=== PATIENT | female | born 1990 | race African-American/Black ===

== ENCOUNTER 2018-01-10 16:52 | Inpatient (IN) | payer MEDICAID, OTHER ==
[2018-01-10] MEDS ORDERED: PENICILLIN G-K 5 MILLION UNIT VIAL ONE ×3 (17:30→21:09)
[2018-01-10] MEDS ORDERED: MISOPROSTOL 0.2 MG TABLET ONE (17:30)
[2018-01-10] MEDS ORDERED: LIDOCAINE 1% INJ-PF (10 MG/ML) 30 ML SDV ONE (17:30)
[2018-01-10] MEDS ORDERED: OXYTOCIN/NORMAL SALINE 20 UNIT/1,000 ML RTUINJ ONE (17:31)
[2018-01-10] MEDS ORDERED: PENICILLIN G POTASSIUM 5,000,000 UNIT in DEXTROSE 5%-WATER 100 ML IV ONE (17:35)
[2018-01-10 18:00] LABS: APPEARANCE,URINE SLIGHTLY-CLOUDY; BILIRUBIN,URINE NEGATIVE (NEGATIVE); COLOR,URINE YELLOW; GLUCOSE, URINE NEGATIVE (NEGATIVE); KETONES,URINE NEGATIVE (NEGATIVE); LEUKOCYTE ESTERASE,URINE TRACE (NEGATIVE); NITRITE,URINE NEGATIVE (NEGATIVE); PROTEIN,URINE 30 mg/dL (NEGATIVE); URINE SPECIFIC GRAVITY 1.023
[2018-01-10 18:49] LABS: ABSOLUTE EOSINOPHILS # (AUTO) 0.2 10^3/uL (0.0-0.6); ABSOLUTE LYMPHOCYTES (AUTO) 1.6 10^3/uL (0.5-4.7); ABSOLUTE MONOCYTES (AUTO) 0.7 10^3/uL (0.1-1.4); ABSOLUTE NEUT (AUTO) 3.7 10^3/uL (1.7-8.2); BASOPHILS % (AUTO) 0.4 % (0-2); EOSINOPHILS % (AUTO) 3.3 % (0-6); HEMATOCRIT 30.4 % (36.0-47.0); HEMOGLOBIN 10.1 g/dL (12.0-15.5); LYMPHOCYTES % (AUTO) 25.9 % (13-45); MEAN CORPUSCULAR HEMOGLOBIN 27.4 pg (27.0-33.4); MEAN CORPUSCULAR VOLUME 83 fl (80-97); MONOCYTES % (AUTO) 11.1 % (3-13); PLATELET COUNT 243 10^3/uL (150-450); RED BLOOD COUNT 3.68 10^6/uL (3.72-5.28); RED CELL DISTRIBUTION WIDTH 14.1 % (11.5-14.0); SEGMENTED NEUTROPHILS % (AUTO) 59.3 % (42-78); TOTAL CELLS COUNTED % (AUTO) 100 %; WHITE BLOOD COUNT 6.2 10^3/uL (4.0-10.5)
[2018-01-10 18:53] LABS: URINE AMPHETAMINES SCREEN NEGATIVE; URINE BARBITURATES SCREEN NEGATIVE; URINE BENZODIAZEPINES SCREEN NEGATIVE; URINE COCAINE SCREEN NEGATIVE; URINE MARIJUANA (THC) SCREEN NEGATIVE; URINE METHADONE SCREEN NEGATIVE; URINE PHENCYCLIDINE SCREEN NEGATIVE
[2018-01-10 20:09] LABS: RUBELLA INTERPRETATION POSITIVE
[2018-01-10] MEDS: RINGERS SOLUTION,LACTATED 1,000 ML IV PRN ×2 (20:54→22:56)
[2018-01-10] MEDS: PENICILLIN G POTASSIUM 2,500,000 UNIT in DEXTROSE 5%-WATER 50 ML IV SCH (21:26)
[2018-01-10 22:21] LABS: CHLAM PCR NOT DETECTED (NOT DETECT); GON PCR NOT DETECTED (NOT DETECT)
--- NOTE | 2018-01-10 22:22 | Admission Physical ---
Datetime Report Generated by CPN: 01/10/2018 22:22 CURRENT ADMISSION Chief Complaint: Suspected Ruptured Membranes Chief Complaint Other: last PNC was at 20wk US, h/o PLTCS w/first delivery (pt request), successful 10 months ago w/second delivery Indication for Induction: PROM Admit Impression : Ruptured Membranes Admit Plan: Admit to Unit; Initiate Protocol ALLERGIES Medication Allergies: No Medication Allergies: No Known Allergies (01/10/2018) Latex: No Latex Allergies OBSTETRICAL HISTORY EDC: 01/24/2018 00:00 : 3 Para: 2 Livin Cesareans: 1 VBACs: 1 Gestational Diabetes: No Rh Sensitization: No Incompetent Cervix: No NIA: No Infertility: No ART Treatment: No Uterine Anomaly: No IUGR: No Hx Previous C/S: Yes Macrosomia: No Hx Loss/Stillborn: No PIH: No Hx : No Placenta Previa/Abruption: No Depression/PP Depression: No PTL/PROM: No Post Hemorrhage: No Current Procedures: None Obstetrical History Comments: G1 C section 2010 girl @ 39 weeks G2 2017, girl @ 37 weeks G3 current SEE RECORDS Alcohol: No Marijuana : No Cocaine: No Other Illicit Drugs: No Cigarettes: Former Smoker. 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 Heart Disease: No Hosp/Surgery: Yes Autoimmune Disorder: No Anesthetic Complications: No Kidney Disease: No Abnormal Pap Smear: No Neuro/Epilepsy: No Psychiatric Disorders: No Other Medical Diseases: No Hepatitis/Liver Disease: No Significant Family History: No Varicosities/Phlebitis: No Trauma/Violence : No Thyroid Dysfunction: No Medical History Comments: x's 1; x's 1 INFECTIOUS HISTORY Gonorrhea: No Genital Herpes: No Chlamydia: No Tuberculosis: No Syphilis: No Hepatitis: No HIV/AIDS Exposure: No Rash or Viral Illness: No HPV: No PHYSICAL EXAM General: Normal HEENT: Normal Neurologic: Normal Thyroid: Normal Heart: Normal Lungs: Normal Breast: Normal Back: Normal Abdomen: Normal Genitourinary Exam: Normal Extremities: Normal DTRs: Normal Pelvic Type: Adequate Vital Signs: Reviewed; Within Normal Limits FETUS A EGA: 38.0 Monitoring: External US Estimated Weight (gm): 3600 Presentation: Vertex PLANS FOR LABOR AND DELIVERY Labor and Delivery: None Pain Management: Natural; Epidural Feeding Preference: Both Benefit of Breast Feed Discussed: Yes Circumcision: No INFORMED CONSENT Informed Consent Obtained: Vaginal Delivery; Induction of Labor; Vaginal After ; Risks, Benefits and Alternatives Discussed Signature: with User ID: [email or web address]
[2018-01-11] MEDS ORDERED: OXYTOCIN 10 UNIT/ML VIAL ONE (00:46)
[2018-01-11] MEDS ORDERED: OXYTOCIN/NORMAL SALINE 0 UNIT/0 ML RTUINJ ONE (00:46)
[2018-01-11] MEDS ORDERED: PENICILLIN G-K 5 MILLION UNIT VIAL ONE ×3 (00:46→09:56)
[2018-01-11] MEDS: PENICILLIN G POTASSIUM 2,500,000 UNIT in DEXTROSE 5%-WATER 50 ML IV SCH ×5 (01:35→20:27)
[2018-01-11] MEDS: RINGERS SOLUTION,LACTATED 1,000 ML IV PRN (05:50)
[2018-01-11] MEDS ORDERED: NALBUPHINE HCL INJ 10 MG/1 ML AMPULE INJ ONE (09:52)
[2018-01-11] MEDS ORDERED: PROMETHAZINE HCL INJ 25 MG/1 ML VIAL IV ONE (09:53)
[2018-01-11] MEDS ORDERED: PROMETHAZINE HCL INJ 25 MG/1 ML VIAL ONE (09:56)
[2018-01-11] MEDS ORDERED: NALBUPHINE HCL INJ 10 MG/1 ML AMPULE ONE (09:56)
[2018-01-11] MEDS ORDERED: EPHEDRINE SULFATE INJ 50 MG/1 ML AMPULE ONE (14:15)
[2018-01-11] MEDS ORDERED: PHENYLEPHRINE HCL INJ/PF 10 MG/1 ML SDV ONE (14:15)
[2018-01-11] MEDS ORDERED: FENTANYL CITRATE INJ/PF 100 MCG/2 ML AMPUL ONE (14:15)
[2018-01-11] MEDS ORDERED: BUPIVACAINE HCL 0.5 % INJ/PF 30 ML SDV ONE (14:16)
[2018-01-11] MEDS ORDERED: FENTANYL/BUPIVACAINE/NS/PF 0 MCG/0 ML RTUINJ EPI ONE (14:16)
[2018-01-11] MEDS ORDERED: NA PHOS,M-B/NA PHOS,DI-BA (ADULT) 133 ML ENEMA PR PRN (15:29)
[2018-01-11] MEDS ORDERED: PSEUDOEPHEDRINE HCL 30 MG TABLET PO PRN (15:29)
[2018-01-11] MEDS ORDERED: ZOLPIDEM TARTRATE 5 MG TABLET PO PRN (15:29)
[2018-01-11] MEDS ORDERED: PROMETHAZINE HCL 25 MG SUPP.RECT PR PRN (15:29)
[2018-01-11] MEDS ORDERED: ACETAMINOPHEN WITH CODEINE #3 TABLET PO PRN (15:29)
[2018-01-11] MEDS ORDERED: PROMETHAZINE HCL INJ 25 MG/1 ML VIAL IV PRN (15:29)
[2018-01-11] MEDS ORDERED: BENZOCAINE/MENTHOL AEROSOL SPRAY 56 ML TOP PRN (15:29)
[2018-01-11] MEDS ORDERED: MEASLES,MUMPS&RUBELLA VACC/PF 0.5 ML VIAL SUBCUT PRN (15:29)
[2018-01-11] MEDS ORDERED: DIPHENHYDRAMINE HCL 25 MG CAPSULE PO PRN (15:29)
[2018-01-11] MEDS ORDERED: DIBUCAINE 1% OINTMENT 28 GM TP PRN (15:29)
[2018-01-11] MEDS ORDERED: DIPH/PERTUSS(ACELL)/TETANUS VAC/PF 0.5 ML SYR (>=10YO) IM PRN (15:29)
[2018-01-11] MEDS ORDERED: PROMETHAZINE HCL 25 MG TABLET PO PRN (15:29)
[2018-01-11] MEDS ORDERED: GLYCERIN/WITCH HAZEL LEAF 1 EACH MED..PAD TP PRN (15:29)
[2018-01-11] MEDS ORDERED: OXYTOCIN/NORMAL SALINE 20 UNIT/1,000 ML RTUINJ IV PRN (15:29)
[2018-01-11] MEDS ORDERED: MAGNESIUM HYDROXIDE SUSP 30 ML UDCUP PO PRN (15:29)
[2018-01-11] MEDS ORDERED: ACETAMINOPHEN 650 MG SUPP.RECT PR PRN (15:29)
--- NOTE | 2018-01-11 16:05 | Delivery Summary ---
Del Sum A-C Datetime Report Generated by CPN: 01/11/2018 16:05 DELIVERY PERSONNEL DELIVERY PERSONNEL: [id number] Delivery Doctor:: Mera Goldman MD Labor and Delivery Nurse:: Tiffany Bradshaw RNrn support services Nurse:: Kath Lemus, RNC MATERNAL INFORMATION Delivery Anesthesia: None Medications After Delivery: Pitocin Drip 20 Units/1000ml NSS Estimated Blood Loss (ml): 200 Maternal Complications: None; Other Complication Details: No care LABOR SUMMARY EDC: 01/24/2018 00:00 No. Babies in Womb: 1 Attempted: Yes Labor Anesthesia: None LABOR INFORMATION Reason for Induction: Not Applicable Onset of Labor: 01/11/2018 13:51 Complete Dilatation: 01/11/2018 14:30 Oxytocin: Augmentation Group B Beta Strep: Unknown Antibiotics # of Doses: 5 Antibiotics Time of Last Dose: 1052 Name of Antibiotic Given: Penicillin Steroids Given: None Reason Steroids Not Administered: Not Applicable MEMBRANES Membranes Rupture Method: Artificial Rupture of Membranes: 01/10/2018 16:30 Length of Rupture (hr): 22.35 Amniotic Fluid Color: Clear Amniotic Fluid Amount: Small Amniotic Fluid Odor: None STAGES OF LABOR Stage 1 hr: 0 Stage 1 min: 39 Stage 2 hr: 0 Stage 2 min: 21 Stage 3 hr: 0 Stage 3 min: 6 Total Time in Labor hr: 1 Total Time in Labor min: 6 VAGINAL DELIVERY Episiotomy: None Laceration #1: None Laceration Extension #1: N/A Laceration Repair: Not Applicable Sponge Count Correct: Yes Sharps Count Correct: Yes CSECTION DELIVERY Primary Indication: N/A Secondary Indication: N/A CSection Incidence: N/A Labor: N/A Elective: N/A CSection Incision: N/A BABY A INFORMATION Infant Delivery Date/Time: 01/11/2018 14:51 Method of Delivery: Vaginal Born in Route : No : Successful Forceps: N/A Vacuum Extraction: N/A Shoulder Dystocia : No PRESENTATION/POSITION BABY A Presentation: Cephalic Cephalic Presentation: Vertex Breech Presentation: N/A PLACENTA INFORMATION BABY A Placenta Delivery Time : 01/11/2018 14:57 Placenta Method of Delivery: Spontaneous Placenta Status: Delivered SCORES BABY A Heart Rate 1 min: >100 bpm Resp Effort 1 min: Good Cry Reflex Irritability 1 min: Cough or Sneeze or Pulls Away Muscle Tone 1 min: Active Motion Color 1 min: Body [place], Extremities Blue SCORE 1 MIN: 9 Heart Rate 5 min: >100 bpm Resp Effort 5 min: Good Cry Reflex Irritability 5 min: Cough or Sneeze or Pulls Away Muscle Tone 5 min: Active Motion Color 5 min: Completely [place] SCORE 5 MIN: 10 INFORMATION BABY A Gestational Age at Delivery: 38.1 Gestational Status: Early Term- 37- 38.6 Weeks Infant Outcome : Liveborn Condition : Stable Sex: Male IDENTIFICATION BABY A ID Band Number: [id number] Mother's Name Verified: Yes Infant RN Verifying : Fredy RN WEIGHT/LENGTH BABY A Infant Birthweight (gm): 3770 Weight (lb): 8 Infant Weight (oz): 5 Length (in): 20.50 Length (cm): 52.07 CORD INFORMATION BABY A No. Cord Vessels: 3 Nuchal Cord : N/A Cord Blood Taken: Yes-For Storage (Mom's Blood type +) Suction: Mouth; Nose BABY B INFORMATION : N/A SIGNATURES Signature: with User ID: [email or web address]
[2018-01-11] MEDS: FERROUS SULFATE 325 MG TABLET PO SCH (17:44)
[2018-01-11] MEDS: DOCUSATE SODIUM 100 MG CAPSULE PO SCH (17:48)
[2018-01-11] MEDS ORDERED: IBUPROFEN 800 MG TABLET ONE (17:51)
[2018-01-11] MEDS: FAMOTIDINE 20 MG TABLET PO SCH (22:10)
[2018-01-11] MEDS: ACETAMINOPHEN WITH CODEINE #3 TABLET PO PRN (23:27)
[2018-01-12] MEDS ORDERED: MISOPROSTOL 0.2 MG TABLET ONE (00:15)
[2018-01-12] MEDS ORDERED: METHYLERGONOVINE MALEATE INJ/PF 0.2 MG/1 ML AMPULE ONE (00:47)
[2018-01-12] MEDS ORDERED: METHYLERGONOVINE MALEATE INJ/PF 0.2 MG/1 ML AMPULE IM ONE (01:00)
[2018-01-12] MEDS: IBUPROFEN 800 MG TABLET PO SCH ×4 (03:04→22:18)
[2018-01-12] MEDS: PENICILLIN G POTASSIUM 2,500,000 UNIT in DEXTROSE 5%-WATER 50 ML IV SCH ×2 (03:05→03:06)
[2018-01-12] MEDS ORDERED: MISOPROSTOL 0.2 MG TABLET PR ONE (03:15)
[2018-01-12] MEDS: RINGERS SOLUTION,LACTATED 1,000 ML IV PRN (05:59)
[2018-01-12 07:22] LABS: HEMOGLOBIN 8.4 g/dL (12.0-15.5); MEAN CORPUSCULAR HEMOGLOBIN 27.3 pg (27.0-33.4); MEAN CORPUSCULAR HGB CONC 33.5 g/dL (32.0-36.0); MEAN CORPUSCULAR VOLUME 82 fl (80-97); PLATELET COUNT 209 10^3/uL (150-450); RED BLOOD COUNT 3.06 10^6/uL (3.72-5.28); RED CELL DISTRIBUTION WIDTH 13.9 % (11.5-14.0)
[2018-01-12] MEDS ORDERED: PROMETHAZINE HCL INJ 25 MG/1 ML VIAL IV PRN (09:30)
[2018-01-12] MEDS ORDERED: MEASLES,MUMPS&RUBELLA VACC/PF 0.5 ML VIAL SUBCUT PRN (09:30)
[2018-01-12] MEDS ORDERED: DIPH/PERTUSS(ACELL)/TETANUS VAC/PF 0.5 ML SYR (>=10YO) IM PRN (09:30)
--- NOTE | 2018-01-12 09:51 | PDOC PROGRESS REPORT ---
Subjective-OB Progress Note for:: 01/12/18 Subjective: PP Day #1, doing well no complaints. A+ / Rubella Immune, pt is breast and bottlefeeding Physical Exam (OB) Vital Signs: Temp Pulse Resp BP Pulse Ox 98.6 F 89 18 137/65 H 99 01/12/18 08:00 01/12/18 08:00 01/12/18 08:00 01/12/18 08:00 01/12/18 08:00 Intake & Output 01/11/18 01/12/18 01/13/18 06:59 06:59 06:59 Intake Total 1217 1050 Output Total 880 Balance 1217 170 Weight 86.5 kg - General General Appearance: Appears well, Alert In distress: None - PIH/Pre-Eclampsia DTR's: 1 + Clonus: Negative Headache: Absent Epigastric Pain: No Visual Changes: No - Episiotomy/Laceration Site Condition: N/A - Lochia Lochia Amount: Small 10-25 ml Lochia Color: Rubra/Red - Abdomen Description: Tender, Firm Hernia Present: No Fundal Description: Firm Fundal Height: u/u - u/2 - Respiratory Respiratory Status: No respiratory distress - Abdominal Inspection: Normal Distension: No distension - Genitourinary Genitourinary Note: voiding - Extremities Upper extremity: Normal inspection Lower extremities: Normal inspection - Neurological Cognition: Normal Orientation: AAOx4 - Psychological Associated symptoms: Normal affect, Normal mood - Skin Skin Temperature: Warm Skin Moisture: Dry Objective-Diagnostic Laboratory: 01/12/18 06:51 01/12/18 06:51 WBC 13.0 H D RBC 3.06 L Hgb 8.4 L Hct 25.0 L MCV 82 MCH 27.3 MCHC 33.5 RDW 13.9 Plt Count 209 Assessment and Plan(PN) - Assessment and Plan (1) normal course Is this a current diagnosis for this admission?: Yes (2) Anemia, Is this a current diagnosis for this admission?: Yes (3) (normal spontaneous vaginal delivery) Is this a current diagnosis for this admission?: Yes - Time Spent with Patient Time with patient: Less than 15 minutes - Disposition Anticipated Discharge: Home Within: within 48 hours
[2018-01-12] MEDS ORDERED: (PENDING PHARMACY ID) (Pnv No.95/Ferrous Fum/Folic Ac [Prenatal Vitamins Tablet] 1 EACH) PO SCH (10:00)
[2018-01-12] MEDS: ACETAMINOPHEN WITH CODEINE #3 TABLET PO PRN (10:12)
[2018-01-12] MEDS: DOCUSATE SODIUM 100 MG CAPSULE PO SCH ×2 (10:13→17:43)
[2018-01-12] MEDS: PRENATAL VITAMIN W DHA CAPSULE PO SCH (10:13)
[2018-01-12] MEDS: FERROUS SULFATE 325 MG TABLET PO SCH ×2 (10:14→17:43)
[2018-01-12] MEDS: SENNOSIDES/DOCUSATE 8.6-50 MG 1 EACH TABLET PO SCH (10:14)
[2018-01-12] MEDS: FAMOTIDINE 20 MG TABLET PO SCH ×2 (10:14→22:18)
[2018-01-12 13:37] LABS: HEPATITIS C VIRUS AB <0.1 s/co ratio (0.0-0.9)
[2018-01-13] MEDS: IBUPROFEN 800 MG TABLET PO SCH (05:59)
[2018-01-13 07:14] LABS: HEPATITS B SURFACE ANTIGEN Negative (Negative)
[2018-01-13] MEDS: DOCUSATE SODIUM 100 MG CAPSULE PO SCH (09:51)
[2018-01-13] MEDS: SENNOSIDES/DOCUSATE 8.6-50 MG 1 EACH TABLET PO SCH (09:51)
[2018-01-13] MEDS: FAMOTIDINE 20 MG TABLET PO SCH (09:51)
[2018-01-13] MEDS: FERROUS SULFATE 325 MG TABLET PO SCH (09:51)
[2018-01-13] MEDS: PRENATAL VITAMIN W DHA CAPSULE PO SCH (09:51)
--- NOTE | 2018-01-13 10:43 | PDOC DISCHARGE SUMMARY ---
Final Diagnosis Discharge Date: 01/13/18 - Final Diagnosis (1) (normal spontaneous vaginal delivery) Is this a current diagnosis for this admission?: Yes Discharge Data - Discharge Medication Prescriptions: Ibuprofen [Motrin 800 mg Tablet] 800 mg PO Q8HP PRN #30 tablet PRN Reason: Home Medications: Pnv No.95/Ferrous Fum/Folic AC [ Vitamins Tablet] 1 each PO DAILY Ferrous Sulfate [Feosol 325 mg Tablet] 325 mg PO BID tablet 01/13/18 Ibuprofen [Motrin 800 mg Tablet] 800 mg PO Q8HP PRN #30 tablet 01/13/18 Procedures: NST Intrapartum Procedure(s): Spontaneous Vaginal Delivery - Diagnosis Test Laboratory: Temp Pulse Resp BP Pulse Ox 97.9 F 73 16 130/55 H 99 01/13/18 08:17 01/13/18 08:17 01/13/18 08:17 01/13/18 08:17 01/13/18 08:17 01/10/18 01/10/18 01/12/18 17:00 18:35 06:51 RBC 3.68 L 3.06 L Hgb 10.1 L 8.4 L Hct 30.4 L 25.0 L Urine Opiates Screen NEGATIVE - Discharge information/Instructions Discharge Activity: Balance Activity w/Rest, Pelvic Rest Discharge Diet: Regular Disposition: HOME, SELF-CARE Follow up with: [facility] in: 4, Weeks
[2018-01-13 10:45] VITALS: BP 127/80
== END 2018-01-13 12:07 | disposition home or self-care (01) | DRG 807 ==
LOC: LC 16:52 → LR 17:38 → 2S 01-11 17:16
PROVIDERS: ADMIT Obstetrics & Gynecology; ATTEND Obstetrics & Gynecology
PROC: 10E0XZZ Delivery of Products of Conception, External Approach (ICD-10-PCS; principal; 2018-01-11)
DX: O34.211 Maternal care for low transverse scar from previous cesarean delivery (principal); Z37.0 Single live birth; O42.02 Full-term premature rupture of membranes, onset of labor within 24 hours of rupture; O99.02 Anemia complicating childbirth; D64.9 Anemia, unspecified; N85.8 Other specified noninflammatory disorders of uterus; Z3A.38 38 weeks gestation of pregnancy
CPT/HCPCS: 36415; 80307; 81005; 84112; 85025; 85027; 86592; 86701; 86762; 86803; 86804; 86850; 86900; 86901; 87340; 87491; 87591; 90471; 90686; G0008; J2210; J2300; J2370; J2540; J2550; J2590; J3010; J3490; J7120

== ENCOUNTER 2019-01-03 14:41 | Outpatient (CLI) | payer SELFPAY ==
[2019-01-03 16:07] LABS: BACTERIA (WET MOUNT) 3+ BACTERIA SEEN; EPITHELIALS (WET MOUNT) 3+ EPITHELIALS SEEN; RBCS (WET MOUNT) FEW RBCS SEEN; T.VAGINALIS (WET MOUNT) NO TRICHOMONAS SEEN; WBCS (WET MOUNT) 3+ WBCS SEEN; YEAST (WET MOUNT) NO YEAST SEEN
[2019-01-03 16:11] LABS: ABSOLUTE EOSINOPHILS # (AUTO) 0.2 10^3/uL (0.0-0.6); ABSOLUTE LYMPHOCYTES (AUTO) 1.4 10^3/uL (0.5-4.7); ABSOLUTE MONOCYTES (AUTO) 0.5 10^3/uL (0.1-1.4); ABSOLUTE NEUT (AUTO) 3.6 10^3/uL (1.7-8.2); BASOPHILS % (AUTO) 0.5 % (0-2); EOSINOPHILS % (AUTO) 3.1 % (0-6); HEMATOCRIT 31.9 % (36.0-47.0); HEMOGLOBIN 10.2 g/dL (12.0-15.5); LYMPHOCYTES % (AUTO) 24.8 % (13-45); MEAN CORPUSCULAR HEMOGLOBIN 26.9 pg (27.0-33.4); MEAN CORPUSCULAR VOLUME 84 fl (80-97); MONOCYTES % (AUTO) 9.1 % (3-13); PLATELET COUNT 264 10^3/uL (150-450); RED CELL DISTRIBUTION WIDTH 14.1 % (11.5-14.0); SEGMENTED NEUTROPHILS % (AUTO) 62.5 % (42-78); TOTAL CELLS COUNTED % (AUTO) 100 %; WHITE BLOOD COUNT 5.8 10^3/uL (4.0-10.5)
--- NOTE | 2019-01-03 16:17 | RADIOLOGY REPORT (SQ) ---
EXAM DESCRIPTION: U/S OB 14+ TRNABD 1GES W/O DOP COMPLETED DATE/TIME: 01/03/2019 4:03 pm REASON FOR STUDY: no care COMPARISON: None. TECHNIQUE: Static and Dynamic grayscale imaging performed of gravid uterus using transabdominal appr oach. Additional selected color Doppler and spectral images recorded. All stored on PACS. LIMITATIONS: None. FINDINGS: FETUSES SEEN:1 EGA: 29 weeks 5 days Calculated using BPD,FL,HC,AC documented on images. No care ALEXA: 03/16/2019 EFW: 1329 g grams PERCENTILE: Not calculated DAVIDE: Largest pocket 3.9 cm PLACENTA: Posterior GRADE: I PRESENTATION: Cephalic. ANATOMY: HEART RATE: 149 beats per minute. FOUR CHAMBER HEART: Visualized. THREE VESSEL CORD: Yes. CORD INSERTION: Visualized. KIDNEYS AND BLADDER: Visualized. Appear normal. STOMACH: Visualized. Appears normal. SPINE: Normal as visualized. BRAIN AND LATERAL VENTRICLES: Visualized. Appear normal. OTHER: No other significant finding. MATERNAL ADNEXA: Maternal ovaries not visualized. CERVICAL LENGTH: 3.2 cm Closed. OTHER: No other significant finding. IMPRESSION: LIVING INTRAUTERINE . ESTIMATED GESTATIONAL AGE 29 weeks 5 days, estimated due date 03/16/2019 NO VISUALIZED ANOMALIES. Trimester of : Third trimester - 28 weeks to delivery. TECHNICAL DOCUMENTATION: JOB ID: [id number] [employer]- All Rights Reserved Reading location - IP/workstation name: [email or web address]
[2019-01-03 16:59] LABS: APPEARANCE,URINE SLIGHTLY-CLOUDY; BILIRUBIN,URINE NEGATIVE (NEGATIVE); COLOR,URINE YELLOW; GLUCOSE, URINE NEGATIVE (NEGATIVE); KETONES,URINE NEGATIVE (NEGATIVE); LEUKOCYTE ESTERASE,URINE MODERATE (NEGATIVE); NITRITE,URINE NEGATIVE (NEGATIVE); PROTEIN,URINE NEGATIVE (NEGATIVE); URINE SPECIFIC GRAVITY 1.026; UROBILINOGEN,URINE NEGATIVE mg/dL (<2.0)
[2019-01-03] MEDS ORDERED: DIPH/PERTUSS(ACELL)/TETANUS VAC/PF 0.5 ML SYR (>=10YO) IM ONE (17:20)
[2019-01-03 17:27] LABS: URINE AMPHETAMINES SCREEN NEGATIVE; URINE BARBITURATES SCREEN NEGATIVE; URINE BENZODIAZEPINES SCREEN NEGATIVE; URINE COCAINE SCREEN NEGATIVE; URINE MARIJUANA (THC) SCREEN NEGATIVE; URINE METHADONE SCREEN NEGATIVE; URINE PHENCYCLIDINE SCREEN NEGATIVE
[2019-01-03 17:32] LABS: CHLAM PCR NOT DETECTED (NOT DETECT)
== END 2019-01-03 18:27 | disposition home or self-care (01) ==
LOC: LC 14:41
PROVIDERS: ATTEND Obstetrics & Gynecology
PROC: 4A1HXCZ Monitoring of Products of Conception, Cardiac Rate, External Approach (ICD-10-PCS; principal; 2019-01-03)
DX: O47.03 False labor before 37 completed weeks of gestation, third trimester (principal); Z3A.29 29 weeks gestation of pregnancy
CPT/HCPCS: 36415; 76805; 80307; 81005; 85025; 86592; 86701; 86762; 86850; 86900; 86901; 87081; 87210; 87340; 87491; 87522; 87591; 90715

== ENCOUNTER 2019-03-15 01:48 | Inpatient (IN) | payer SELFPAY ==
[2019-03-15 02:38] LABS: APPEARANCE,URINE CLOUDY; BILIRUBIN,URINE NEGATIVE (NEGATIVE); COLOR,URINE AMBER; GLUCOSE, URINE NEGATIVE (NEGATIVE); KETONES,URINE NEGATIVE (NEGATIVE); LEUKOCYTE ESTERASE,URINE LARGE (NEGATIVE); NITRITE,URINE NEGATIVE (NEGATIVE); PROTEIN,URINE 30 mg/dL (NEGATIVE); URINE SPECIFIC GRAVITY 1.025
[2019-03-15 03:01] LABS: URINE AMPHETAMINES SCREEN NEGATIVE; URINE BARBITURATES SCREEN NEGATIVE; URINE BENZODIAZEPINES SCREEN NEGATIVE; URINE COCAINE SCREEN NEGATIVE; URINE METHADONE SCREEN NEGATIVE; URINE PHENCYCLIDINE SCREEN NEGATIVE
[2019-03-15 03:08] LABS: URINE MARIJUANA (THC) SCREEN UNCONFIRMED POSITIVE
[2019-03-15 04:12] LABS: CHLAM PCR NOT DETECTED (NOT DETECT)
[2019-03-15] MEDS ORDERED: PENICILLIN G POTASSIUM 5,000,000 UNIT in DEXTROSE 5%-WATER 100 ML IV ONE (05:00)
[2019-03-15] MEDS ORDERED: PENICILLIN G-K 5 MILLION UNIT VIAL ONE ×3 (05:03→13:15)
[2019-03-15] MEDS ORDERED: RINGERS SOLUTION,LACTATED 1,000 ML IV PRN (08:48)
[2019-03-15] MEDS ORDERED: NORMAL SALINE 250 ML IV PRN (08:48)
[2019-03-15] MEDS ORDERED: RINGERS SOLUTION,LACTATED 1,000 ML IV ONE (08:48)
--- NOTE | 2019-03-15 09:02 | Admission Physical ---
Datetime Report Generated by CPN: 03/15/2019 09:02 CURRENT ADMISSION Hx Assessment: No Care Chief Complaint: Uterine Contractions Admit Impression : Term, Intrauterine ; Active Labor; Intact Membranes; Admit Plan: Admit to Unit ALLERGIES Medication Allergies: No Medication Allergies: No Known Allergies (01/10/2018) Latex: No Latex Allergies OBSTETRICAL HISTORY EDC: 03/16/2019 00:00 : 4 Para: 3 Term: 3 : 0 SAB: 0 IAB: 0 Ectopic: 0 Livin Cesareans: 1 VBACs: 2 Multiple Births: 0 Gestational Diabetes: No Rh Sensitization: No Incompetent Cervix: No NIA: No Infertility: No ART Treatment: No Uterine Anomaly: No IUGR: No Hx Previous C/S: Yes Macrosomia: No Hx Loss/Stillborn: No PIH: No Hx : No Placenta Previa/Abruption: No Depression/PP Depression: No PTL/PROM: No Post Hemorrhage: Yes Current Procedures: None Obstetrical History Comments: G1- 2010, C/S G2- 2016, G3- 2017, G4- Current, No care SEE RECORDS Alcohol: No Marijuana : No Cocaine: No Other Illicit Drugs: No Cigarettes: Never Smoker. 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 Heart Disease: No Hosp/Surgery: Yes Autoimmune Disorder: No Anesthetic Complications: No Kidney Disease: No Abnormal Pap Smear: No Neuro/Epilepsy: No Psychiatric Disorders: No Other Medical Diseases: No Hepatitis/Liver Disease: No Significant Family History: No Varicosities/Phlebitis: No Trauma/Violence : No Thyroid Dysfunction: No Medical History Comments: Childhood asthma, , left hand surgery, childbirth INFECTIOUS HISTORY Gonorrhea: No Genital Herpes: No Chlamydia: No Tuberculosis: No Syphilis: No Hepatitis: No HIV/AIDS Exposure: No Rash or Viral Illness: No HPV: No PHYSICAL EXAM General: Normal HEENT: Deferred Neurologic: Normal Thyroid: Normal Heart: Normal Lungs: Normal Breast: Deferred Back: Normal Abdomen: Normal Genitourinary Exam: Normal Extremities: Normal DTRs: Normal Pelvic Type: Adequate Physical Exam Comments: No PNC, GBS unknown, being treated Seen at [facility] [place] last week to get Medicaid 2 vaginal deliveries after C/S Pelvis proven for 8-6 Asthma as a child Hx PPH FETUS A EGA: 39.6 Monitoring: External US Accelerations: 15X15 Decelerations: None FHR Category: Category I Admit Comment: Admitted to LD after being seen as a labor check, had cervical change, plan to admit Dr. Goldman on unit and aware, Cat 1 strip PLANS FOR LABOR AND DELIVERY Labor and Delivery: None Pain Management: Natural Feeding Preference: Both Benefit of Breast Feed Discussed: Yes Circumcision: No INFORMED CONSENT Assignment: Mera Goldman MD Signature: with User ID: Karrie : with User ID: [email or web address]
[2019-03-15] MEDS ORDERED: OXYTOCIN 10 UNIT/ML VIAL ONE (09:19)
[2019-03-15] MEDS ORDERED: OXYTOCIN/NORMAL SALINE 20 UNIT/1,000 ML RTUINJ ONE (09:20)
[2019-03-15] MEDS ORDERED: LIDOCAINE 1% INJ-PF (10 MG/ML) 30 ML SDV ONE (09:20)
[2019-03-15] MEDS ORDERED: MISOPROSTOL 0.2 MG TABLET ONE (09:20)
[2019-03-15] MEDS: PENICILLIN G POTASSIUM 2,500,000 UNIT in DEXTROSE 5%-WATER 50 ML IV SCH ×2 (09:22→18:01)
[2019-03-15] MEDS ORDERED: NALBUPHINE HCL INJ 10 MG/1 ML AMPULE ONE ×2 (09:31→13:14)
[2019-03-15] MEDS ORDERED: NALBUPHINE HCL INJ 10 MG/1 ML AMPULE IV ONE ×2 (09:32→13:18)
[2019-03-15 10:14] LABS: ABSOLUTE LYMPHOCYTES (AUTO) 1.3 10^3/uL (0.5-4.7); ABSOLUTE MONOCYTES (AUTO) 0.5 10^3/uL (0.1-1.4); ABSOLUTE NEUT (AUTO) 5.4 10^3/uL (1.7-8.2); BASOPHILS % (AUTO) 0.3 % (0-2); EOSINOPHILS % (AUTO) 0.4 % (0-6); HEMATOCRIT 30.2 % (36.0-47.0); HEMOGLOBIN 9.7 g/dL (12.0-15.5); LYMPHOCYTES % (AUTO) 18.4 % (13-45); MEAN CORPUSCULAR HEMOGLOBIN 25.4 pg (27.0-33.4); MEAN CORPUSCULAR HGB CONC 32.3 g/dL (32.0-36.0); MEAN CORPUSCULAR VOLUME 79 fl (80-97); MONOCYTES % (AUTO) 6.5 % (3-13); PLATELET COUNT 255 10^3/uL (150-450); RED BLOOD COUNT 3.83 10^6/uL (3.72-5.28); RED CELL DISTRIBUTION WIDTH 15.4 % (11.5-14.0); SEGMENTED NEUTROPHILS % (AUTO) 74.4 % (42-78); TOTAL CELLS COUNTED % (AUTO) 100 %; WHITE BLOOD COUNT 7.2 10^3/uL (4.0-10.5)
[2019-03-15] MEDS ORDERED: DIBUCAINE 1% OINTMENT 56 GM TP PRN (15:03)
[2019-03-15] MEDS ORDERED: NA PHOS,M-B/NA PHOS,DI-BA (ADULT) 133 ML ENEMA PR PRN (15:03)
[2019-03-15] MEDS ORDERED: PSEUDOEPHEDRINE HCL 30 MG TABLET PO PRN (15:03)
[2019-03-15] MEDS ORDERED: MISOPROSTOL 0.2 MG TABLET PR ONE (15:03)
[2019-03-15] MEDS ORDERED: MAGNESIUM HYDROXIDE SUSP 30 ML UDCUP PO PRN (15:03)
[2019-03-15] MEDS ORDERED: GLYCERIN/WITCH HAZEL LEAF 1 EACH MED..WIPE TP PRN (15:03)
[2019-03-15] MEDS ORDERED: DIPH/PERTUSS(ACELL)/TETANUS VAC/PF 0.5 ML SYR (>=10YO) IM PRN (15:03)
[2019-03-15] MEDS ORDERED: PROMETHAZINE HCL INJ 25 MG/1 ML VIAL IV PRN (15:03)
[2019-03-15] MEDS ORDERED: DIPHENHYDRAMINE HCL 25 MG CAPSULE PO PRN (15:03)
[2019-03-15] MEDS ORDERED: BENZOCAINE/MENTHOL AEROSOL SPRAY 56 ML TOP PRN (15:03)
[2019-03-15] MEDS ORDERED: OXYTOCIN/NORMAL SALINE 20 UNIT/1,000 ML RTUINJ IV PRN (15:03)
[2019-03-15] MEDS ORDERED: ACETAMINOPHEN 650 MG SUPP.RECT PR PRN (15:03)
[2019-03-15] MEDS ORDERED: PROMETHAZINE HCL 25 MG TABLET PO PRN (15:03)
[2019-03-15] MEDS ORDERED: ACETAMINOPHEN WITH CODEINE #3 TABLET PO PRN (15:03)
[2019-03-15] MEDS ORDERED: PROMETHAZINE HCL 25 MG SUPP.RECT PR PRN (15:03)
[2019-03-15] MEDS ORDERED: MEASLES,MUMPS&RUBELLA VACC/PF 0.5 ML VIAL SUBCUT PRN (15:03)
[2019-03-15 16:09] LABS: HEMATOCRIT 31.5 % (36.0-47.0); MEAN CORPUSCULAR HEMOGLOBIN 24.9 pg (27.0-33.4); MEAN CORPUSCULAR HGB CONC 31.7 g/dL (32.0-36.0); MEAN CORPUSCULAR VOLUME 79 fl (80-97); PLATELET COUNT 253 10^3/uL (150-450); RED BLOOD COUNT 4.01 10^6/uL (3.72-5.28); RED CELL DISTRIBUTION WIDTH 15.7 % (11.5-14.0); WHITE BLOOD COUNT 13.4 10^3/uL (4.0-10.5)
[2019-03-15] MEDS ORDERED: IBUPROFEN 800 MG TABLET ONE (16:38)
--- NOTE | 2019-03-15 17:02 | Delivery Summary ---
Del Sum A-C Datetime Report Generated by CPN: 03/15/2019 17:01 DELIVERY PERSONNEL DELIVERY PERSONNEL: [id number] Delivery Doctor:: Promise Morales CNM Nurse Manufacturing Software Engineer Certified:: Promise Morales CNM Labor and Delivery Nurse:: Ana Lester RNmanager strategic partnerships Nurse:: Sonja Jennings RN Nursery Nurse:: Ina Santiago RN Nursery Nurse:: Corina Ibarra RN Llama Farmer/TELEPHONE PLANT POWER OPERATOR: Areli Bird, ST Additional Personnel: : Belkis Gramajo, RNC MATERNAL INFORMATION Delivery Anesthesia: None Medications After Delivery: Pitocin Bolus-Please Comment; Cytotec 1000mcg Per Rectum/Vagina Meds After Delivery Comment: Pitocin 20 units in 1000mL NS open bolus Delivery QBL: 100 Maternal Complications: Other Complication Details: Provider Comments: pt progressed to complete, in rocking chair, back tobed, started pushing, viable female, at delivery of head, unable to deliver rest of body, turtle sign, called for help, suprapubic, Irina, delivery of left posterior shoulder, rt shoulder soon came under the symphysis and baby was delivered, placed on mothers abdomen, cord clamped and cut immediately and given to nursery nurses. Spont delivery of grossly normal intact placenta, 3 VC, FFFM, massage, Pitocin and Cytotec 1000mcg via rectum. No lacerations or tears, remains in recovery in stable condition. FFFM LABOR SUMMARY EDC: 03/16/2019 00:00 No. Babies in Womb: 1 Attempted: Yes Labor Anesthesia: IV Sedation LABOR INFORMATION Reason for Induction: Not Applicable Onset of Labor: 03/15/2019 08:00 Complete Dilatation: 03/15/2019 14:31 Oxytocin: Augmentation Group B Beta Strep: 1 GROUP B BETA HEMOLYTIC STREPTOCOCCUS RECOVERED Antibiotics # of Doses: 3 Antibiotics Time of Last Dose: 1328 Name of Antibiotic Given: PCN Steroids Given: None Reason Steroids Not Administered: Not Applicable MEMBRANES Membranes Rupture Method: Artificial Rupture of Membranes: 03/15/2019 10:16 Length of Rupture (hr): 4.47 Amniotic Fluid Color: Clear Amniotic Fluid Amount: Small Amniotic Fluid Odor: Normal STAGES OF LABOR Stage 1 hr: 6 Stage 1 min: 31 Stage 2 hr: 0 Stage 2 min: 13 Stage 3 hr: 0 Stage 3 min: 4 Total Time in Labor hr: 6 Total Time in Labor min: 48 VAGINAL DELIVERY Episiotomy: None Laceration #1: None Laceration Extension #1: N/A Laceration Repair: Not Applicable Sponge Count Correct: N/A Sharps Count Correct: N/A CSECTION DELIVERY Primary Indication: N/A Secondary Indication: N/A BABY A INFORMATION Infant Delivery Date/Time: 03/15/2019 14:44 Method of Delivery: Vaginal Born in Route : No : Successful Forceps: N/A Vacuum Extraction: N/A Shoulder Dystocia : Yes SHOULDER DYSTOCIA BABY A Delivery of Head: 03/15/2019 14:42 Time Head to Delivery : 2.0 1st Intervention to Resolve: Gentle Attempt at Traction, Assisted by Maternal Expulsive Efforts 2nd Intervention to Resolve: McRobert's Maneuver 3rd Intervention to Resolve: Suprapubic Pressure 4th Intervention to Resolve: Posterior Arm Release Verify NO Fundal Pressure: No Fundal Pressure Applied Arm Under Symphisis at Del: Right PRESENTATION/POSITION BABY A Presentation: Cephalic Cephalic Presentation: Vertex Vertex Position: Left Occipital Anterior Breech Presentation: N/A PLACENTA INFORMATION BABY A Placenta Delivery Time : 03/15/2019 14:48 Placenta Method of Delivery: Spontaneous Placenta Status: Delivered SCORES BABY A Heart Rate 1 min: >100 bpm Resp Effort 1 min: Slow, Irregular Reflex Irritability 1 min: Grimace Muscle Tone 1 min: Some Flexion of Extremities Color 1 min: Blue/Pale SCORE 1 MIN: 5 Heart Rate 5 min: >100 bpm Resp Effort 5 min: Good Cry Reflex Irritability 5 min: Cough or Sneeze or Pulls Away Muscle Tone 5 min: Active Motion Color 5 min: Body [place], Extremities Blue SCORE 5 MIN: 9 INFANT INFORMATION BABY A Gestational Age at Delivery: 39.6 Gestational Status: Full Term- 39- 40.6 Weeks Outcome : Liveborn Infant Condition : Stable Infant Sex: Female IDENTIFICATION BABY A Verification Date/Time: 03/15/2019 14:54 ID Band Number: [id number] RN Verifying Infant: Adam McmanusLas Cruces, RN Additional Verifying Personnel: Mario Lester RN CORD INFORMATION BABY A No. Cord Vessels: 3 Nuchal Cord : N/A Cord Blood Taken: Yes-For Storage (Mom's Blood type +) Suction: None ASSESSMENT BABY A Complications: Shoulder Dystocia; Other Infant Complications- Other: terminal meconium Skin to Skin: Yes Skin to Skin Time (min): 25 Transferred To: Remains with Mother BABY B INFORMATION : N/A
[2019-03-15] MEDS: ACETAMINOPHEN WITH CODEINE #3 TABLET PO PRN (17:45)
[2019-03-15] MEDS: FERROUS SULFATE 325 MG TABLET PO SCH (17:45)
[2019-03-15] MEDS: DOCUSATE SODIUM 100 MG CAPSULE PO SCH (17:45)
[2019-03-15] MEDS: IBUPROFEN 800 MG TABLET PO SCH (21:04)
[2019-03-15] MEDS: FAMOTIDINE 20 MG TABLET PO SCH (21:04)
[2019-03-16] MEDS: IBUPROFEN 800 MG TABLET PO SCH ×3 (05:21→21:03)
[2019-03-16 07:31] LABS: HEMATOCRIT 28.9 % (36.0-47.0); HEMOGLOBIN 9.3 g/dL (12.0-15.5); MEAN CORPUSCULAR HEMOGLOBIN 25.5 pg (27.0-33.4); MEAN CORPUSCULAR HGB CONC 32.4 g/dL (32.0-36.0); MEAN CORPUSCULAR VOLUME 79 fl (80-97); PLATELET COUNT 243 10^3/uL (150-450); RED BLOOD COUNT 3.66 10^6/uL (3.72-5.28); RED CELL DISTRIBUTION WIDTH 15.4 % (11.5-14.0); WHITE BLOOD COUNT 12.2 10^3/uL (4.0-10.5)
--- NOTE | 2019-03-16 09:24 | PDOC PROGRESS REPORT ---
Subjective-OB Progress Note for:: 03/16/19 - PP Day #1, doing well, No PNC w/ this , labwork reviewed, negative STD bloodwork and negative GC/ chlamydia, +THC in urine. A+, pt plans to breastfeed. Anemia noted. Did discuss getting Depo Pr overa prior to d/c home, pt is considering it. Physical Exam (OB) Vital Signs: Temp Pulse Resp BP Pulse Ox 98.1 F 78 18 122/65 98 03/16/19 07:45 03/16/19 07:45 03/16/19 07:45 03/16/19 07:45 03/16/19 07:45 Intake & Output 03/15/19 03/16/19 03/17/19 06:59 06:59 06:59 Intake Total 600 500 Balance 600 500 Weight 81.193 kg - General General Appearance: Appears well In distress: None - PIH/Pre-Eclampsia Headache: Absent Epigastric Pain: No Visual Changes: No - Lochia Lochia Amount: Scant < 10 ml Lochia Color: Rubra/Red - Abdomen Description: Tender, Soft Hernia Present: No Fundal Description: Firm, Midline Fundal Height: u/u - u/2 - Respiratory Respiratory Status: No respiratory distress - Abdominal Inspection: Normal Distension: No distension Tenderness: Nontender - Genitourinary Genitourinary Note: voiding - Extremities Upper extremity: Normal inspection Lower extremities: Normal inspection - Neurological Cognition: Normal Orientation: AAOx4 - Psychological Associated symptoms: Normal affect, Normal mood - Skin Skin Temperature: Warm Skin Moisture: Dry Objective-Diagnostic Laboratory: 03/16/19 06:59 03/15/19 03/15/19 03/15/19 09:35 09:35 15:59 WBC 7.2 13.4 H RBC 3.83 4.01 Hgb 9.7 L 10.0 L Hct 30.2 L 31.5 L MCV 79 L 79 L MCH 25.4 L 24.9 L MCHC 32.3 31.7 L RDW 15.4 H 15.7 H Plt Count 255 253 Seg Neutrophils % 74.4 Blood Type A POSITIVE Antibody Screen NEGATIVE 03/16/19 06:59 WBC 12.2 H RBC 3.66 L Hgb 9.3 L Hct 28.9 L MCV 79 L MCH 25.5 L MCHC 32.4 RDW 15.4 H Plt Count 243 Seg Neutrophils % Blood Type Antibody Screen Assessment and Plan(PN) - Assessment and Plan (1) Tetrahydrocannabinol (THC) use disorder, mild, abuse Is this a current diagnosis for this admission?: Yes (2) Anemia Qualifiers: Anemia type: iron deficiency Is this a current diagnosis for this admission?: Yes (3) No care in current Qualifiers: Trimester: third trimester Qualified Code(s): O09.33 - Supervision of with insufficient care, third trimester Is this a current diagnosis for this admission?: Yes (4) , delivered Is this a current diagnosis for this admission?: Yes (6) (normal spontaneous vaginal delivery) Is this a current diagnosis for this admission?: Yes Plan:: ambulation encouraged, Routine PP orders, no rubella status resulted, may need MMR prior to d/c home - Time Spent with Patient Time with patient: Less than 15 minutes Medications reviewed and adjusted accordingly: Yes - Disposition Anticipated Discharge: Home Within: within 24 hours
[2019-03-16] MEDS: PRENATAL VITAMIN W DHA CAPSULE PO SCH (10:03)
[2019-03-16] MEDS: SENNOSIDES/DOCUSATE 8.6-50 MG 1 EACH TABLET PO SCH (10:03)
[2019-03-16] MEDS: FAMOTIDINE 20 MG TABLET PO SCH ×2 (10:03→21:03)
[2019-03-16] MEDS: FERROUS SULFATE 325 MG TABLET PO SCH ×2 (10:03→17:44)
[2019-03-16] MEDS: DOCUSATE SODIUM 100 MG CAPSULE PO SCH ×2 (10:03→17:44)
[2019-03-16] MEDS: ACETAMINOPHEN WITH CODEINE #3 TABLET PO PRN (12:54)
[2019-03-17] MEDS: IBUPROFEN 800 MG TABLET PO SCH ×2 (05:56→13:32)
[2019-03-17 07:56] VITALS: BP 127/74
[2019-03-17] MEDS: SENNOSIDES/DOCUSATE 8.6-50 MG 1 EACH TABLET PO SCH (09:48)
[2019-03-17] MEDS: PRENATAL VITAMIN W DHA CAPSULE PO SCH (09:48)
[2019-03-17] MEDS: DOCUSATE SODIUM 100 MG CAPSULE PO SCH (09:48)
[2019-03-17] MEDS: FAMOTIDINE 20 MG TABLET PO SCH (09:48)
[2019-03-17] MEDS: FERROUS SULFATE 325 MG TABLET PO SCH (09:48)
[2019-03-17] MEDS ORDERED: MEDROXYPROGESTERONE ACET INJ 150 MG/1 ML VIAL IM ONE (13:19)
--- NOTE | 2019-03-17 13:27 | PDOC DISCHARGE SUMMARY ---
Impression - Admit/DC Date/PCP Admission Date/Primary Care Provider: 03/15/19 08:24 EDGARDO JONES MD Discharge Date: 03/17/19 - Discharge Diagnosis (1) Anemia complicating , third trimester Is this a current diagnosis for this admission?: Yes (2) Tetrahydrocannabinol (THC) use disorder, mild, abuse Is this a current diagnosis for this admission?: Yes (3) Shoulder dystocia, delivered, current hospitalization Is this a current diagnosis for this admission?: Yes (4) No care in current Is this a current diagnosis for this admission?: Yes (5) , delivered Is this a current diagnosis for this admission?: Yes (6) normal course Is this a current diagnosis for this admission?: Yes - Assessment Summary: desires depo to be given prior to discharge - Additional Information Resuscitation Status: Full Code Discharge Diet: As Tolerated, Regular Discharge Activity: Activity As Tolerated, Balance Activity w/Rest, No Lifting Over 10 Pounds, Pelvic Rest, No tub bath, Walk Frequently Referrals: EDGARDO JONES MD [Primary Care Provider] - Prescriptions: Ibuprofen [Motrin 800 mg Tablet] 800 mg PO Q8HP PRN #20 tablet PRN Reason: Abdominal Cramping Docusate Sodium [Colace 100 mg Capsule] 100 mg PO BID #60 capsule Ferrous Sulfate [Feosol 325 mg Tablet] 325 mg PO BID #60 tablet Home Medications: Pnv No.95/Ferrous Fum/Folic AC [ Vitamins Tablet] 1 each PO DAILY 01/10/18 Docusate Sodium [Colace 100 mg Capsule] 100 mg PO BID #60 capsule 03/17/19 Ferrous Sulfate [Feosol 325 mg Tablet] 325 mg PO BID #60 tablet 03/17/19 Ibuprofen [Motrin 800 mg Tablet] 800 mg PO Q8HP PRN #20 tablet 03/17/19 Additional Information: schedule appt at [facility] for 4 weeks Results Laboratory Results: WBC 12.2 10^3/uL (4.0-10.5) H 03/16/19 06:59 RBC 3.66 10^6/uL (3.72-5.28) L 03/16/19 06:59 Hgb 9.3 g/dL (12.0-15.5) L 03/16/19 06:59 Hct 28.9 % (36.0-47.0) L 03/16/19 06:59 MCV 79 fl (80-97) L 03/16/19 06:59 MCH 25.5 pg (27.0-33.4) L 03/16/19 06:59 MCHC 32.4 g/dL (32.0-36.0) 03/16/19 06:59 RDW 15.4 % (11.5-14.0) H 03/16/19 06:59 Plt Count 243 10^3/uL (150-450) 03/16/19 06:59 Lymph % (Auto) 18.4 % (13-45) 03/15/19 09:35 [place] % (Auto) 6.5 % (3-13) 03/15/19 09:35 Eos % (Auto) 0.4 % (0-6) 03/15/19 09:35 Baso % (Auto) 0.3 % (0-2) 03/15/19 09:35 Absolute Neuts (auto) 5.4 10^3/uL (1.7-8.2) 03/15/19 09:35 Absolute Lymphs (auto) 1.3 10^3/uL (0.5-4.7) 03/15/19 09:35 Absolute Monos (auto) 0.5 10^3/uL (0.1-1.4) 03/15/19 09:35 Absolute Eos (auto) 0.0 10^3/uL (0.0-0.6) 03/15/19 09:35 Absolute Basos (auto) 0.0 10^3/uL (0.0-0.2) 03/15/19 09:35 Seg Neutrophils % 74.4 % (42-78) 03/15/19 09:35 Urine Color NEDA 03/15/19 02:15 Urine Appearance CLOUDY 03/15/19 02:15 Urine pH 6.0 (5.0-9.0) 03/15/19 02:15 Ur Specific [place] 1.025 03/15/19 02:15 Urine Protein 30 mg/dL (NEGATIVE) H 03/15/19 02:15 Urine Glucose (UA) NEGATIVE mg/dL (NEGATIVE) 03/15/19 02:15 Urine Ketones NEGATIVE mg/dL (NEGATIVE) 03/15/19 02:15 Urine Blood NEGATIVE (NEGATIVE) 03/15/19 02:15 Urine Nitrite NEGATIVE (NEGATIVE) 03/15/19 02:15 Urine Bilirubin NEGATIVE (NEGATIVE) 03/15/19 02:15 Urine Urobilinogen 4.0 mg/dL (<2.0) H 03/15/19 02:15 Ur Leukocyte Esterase LARGE (NEGATIVE) H 03/15/19 02:15 Urine Ascorbic Acid 40 (NEGATIVE) H 03/15/19 02:15 Urine Opiates Screen NEGATIVE 03/15/19 02:15 Urine Methadone Screen NEGATIVE 03/15/19 02:15 Ur Barbiturates Screen NEGATIVE 03/15/19 02:15 Ur Phencyclidine Scrn NEGATIVE 03/15/19 02:15 Ur Amphetamines Screen NEGATIVE 03/15/19 02:15 U Benzodiazepines Scrn NEGATIVE 03/15/19 02:15 Urine Cocaine Screen NEGATIVE 03/15/19 02:15 U Marijuana (THC) Screen UNCONFIRMED POSITIVE 03/15/19 02:15 RPR NONREACTIVE (NONREACTIVE) 03/15/19 09:35 Chlamydia DNA (PCR) NOT DETECTED (NOT DETECT) 03/15/19 02:15 HIV 1&2 Antibody NEGATIVE (NEGATIVE) 03/15/19 09:35 N.gonorrhoeae DNA (PCR) NOT DETECTED (NOT DETECT) 03/15/19 02:15 Blood Type A POSITIVE 03/15/19 09:35 Antibody Screen NEGATIVE 03/15/19 09:35 Crossmatch See Detail 03/15/19 09:35
== END 2019-03-17 13:43 | disposition home or self-care (01) | DRG 806 ==
LOC: LC 01:48 → LR 08:24 → 2S 17:27
PROVIDERS: ADMIT Obstetrics & Gynecology; ATTEND Obstetrics & Gynecology
PROC: 10E0XZZ Delivery of Products of Conception, External Approach (ICD-10-PCS; principal; 2019-03-15)
PROC: 3E0234Z Introduction of Serum, Toxoid and Vaccine into Muscle, Percutaneous Approach (ICD-10-PCS; 2019-03-17)
DX: O66.0 Obstructed labor due to shoulder dystocia (principal); O99.324 Drug use complicating childbirth; Z37.0 Single live birth; O77.0 Labor and delivery complicated by meconium in amniotic fluid; O99.824 Streptococcus B carrier state complicating childbirth; O34.219 Maternal care for unspecified type scar from previous cesarean delivery; O99.02 Anemia complicating childbirth; D50.9 Iron deficiency anemia, unspecified; F12.90 Cannabis use, unspecified, uncomplicated; Z3A.38 38 weeks gestation of pregnancy; Z23 Encounter for immunization
CPT/HCPCS: 36415; 80307; 80349; 81005; 85025; 85027; 86592; 86701; 86850; 86900; 86901; 86920; 87491; 87591; 90715; 94760; G0480; J1050; J2300; J2540; J2550; J2590; J3490

== ENCOUNTER 2020-04-12 01:15 | Inpatient (IN) | payer MEDICAID ==
[2020-04-12 02:07] LABS: APPEARANCE,URINE SLIGHTLY-CLOUDY; BILIRUBIN,URINE NEGATIVE (NEGATIVE); COLOR,URINE YELLOW; GLUCOSE, URINE NEGATIVE (NEGATIVE); KETONES,URINE 300 mg/dL (NEGATIVE); URINE SPECIFIC GRAVITY 1.015
[2020-04-12 02:08] LABS: LEUKOCYTE ESTERASE,URINE LARGE (NEGATIVE); NITRITE,URINE NEGATIVE (NEGATIVE); PROTEIN,URINE 30 mg/dL (NEGATIVE)
[2020-04-12 02:13] LABS: ABSOLUTE LYMPHOCYTES (AUTO) 1.1 10^3/uL (0.5-4.7); ABSOLUTE MONOCYTES (AUTO) 0.4 10^3/uL (0.1-1.4); ABSOLUTE NEUT (AUTO) 7.5 10^3/uL (1.7-8.2); BASOPHILS % (AUTO) 0.3 % (0-2); EOSINOPHILS % (AUTO) 0.2 % (0-6); HEMATOCRIT 28.3 % (36.0-47.0); HEMOGLOBIN 9.1 g/dL (12.0-15.5); LYMPHOCYTES % (AUTO) 12.6 % (13-45); MEAN CORPUSCULAR HGB CONC 32.1 g/dL (32.0-36.0); MEAN CORPUSCULAR VOLUME 78 fl (80-97); MONOCYTES % (AUTO) 4.1 % (3-13); PLATELET COUNT 275 10^3/uL (150-450); RED BLOOD COUNT 3.62 10^6/uL (3.72-5.28); RED CELL DISTRIBUTION WIDTH 15.4 % (11.5-14.0); SEGMENTED NEUTROPHILS % (AUTO) 82.8 % (42-78); TOTAL CELLS COUNTED % (AUTO) 100 %; WHITE BLOOD COUNT 9.1 10^3/uL (4.0-10.5)
[2020-04-12 03:00] LABS: URINE AMPHETAMINES SCREEN NEGATIVE; URINE BARBITURATES SCREEN NEGATIVE; URINE BENZODIAZEPINES SCREEN NEGATIVE; URINE COCAINE SCREEN NEGATIVE; URINE MARIJUANA (THC) SCREEN NEGATIVE; URINE METHADONE SCREEN NEGATIVE; URINE PHENCYCLIDINE SCREEN NEGATIVE
[2020-04-12] MEDS ORDERED: RINGERS SOLUTION,LACTATED 1,000 ML IV ONE (03:39)
--- NOTE | 2020-04-12 03:56 | RADIOLOGY REPORT (SQ) ---
CLINICAL HISTORY: no care COMPARISON: None. 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 Anatomic evaluation shows a four-chamber heart with normal kidneys, bladder, stomach and extremities. Cervix is not well seen. Biparietal diameter measures 8.9 cm corresponding to 36 weeks one day. Head circumference measures 32.5 cm corresponding to 36 weeks five days. Abdominal circumference measures 33.8 cm corresponding to 37 weeks five days. Femur length measures 8 cm corresponding to 40 weeks five days. Estimated weight is 3393 g, 84th percentile. DAVIDE is normal at 11.3 cm. Anterior/fundal placenta is unremarkable. IMPRESSION: Single live intrauterine gestation as described.
[2020-04-12] MEDS ORDERED: OXYTOCIN 10 UNIT/ML VIAL ONE (05:24)
[2020-04-12] MEDS ORDERED: LIDOCAINE 1% INJ-PF (10 MG/ML) 30 ML SDV ONE (05:24)
[2020-04-12] MEDS ORDERED: OXYTOCIN/0.9 % SODIUM CHLORIDE 30 UNIT/500 ML RTUINJ ONE (05:24)
[2020-04-12] MEDS ORDERED: MISOPROSTOL 0.2 MG TABLET ONE (05:24)
[2020-04-12] MEDS ORDERED: PENICILLIN G POTASSIUM 5,000,000 UNIT in DEXTROSE 5%-WATER 100 ML IV ONE (06:08)
[2020-04-12] MEDS ORDERED: PENICILLIN G-K 5 MILLION UNIT VIAL ONE ×2 (06:10→14:12)
[2020-04-12 06:26] LABS: ABSOLUTE LYMPHOCYTES (AUTO) 1.3 10^3/uL (0.5-4.7); ABSOLUTE MONOCYTES (AUTO) 0.5 10^3/uL (0.1-1.4); ABSOLUTE NEUT (AUTO) 7.9 10^3/uL (1.7-8.2); BASOPHILS % (AUTO) 0.4 % (0-2); EOSINOPHILS % (AUTO) 0.1 % (0-6); HEMATOCRIT 27.1 % (36.0-47.0); LYMPHOCYTES % (AUTO) 13.4 % (13-45); MEAN CORPUSCULAR HEMOGLOBIN 25.9 pg (27.0-33.4); MEAN CORPUSCULAR HGB CONC 33.3 g/dL (32.0-36.0); MEAN CORPUSCULAR VOLUME 78 fl (80-97); MONOCYTES % (AUTO) 4.7 % (3-13); PLATELET COUNT 268 10^3/uL (150-450); RED BLOOD COUNT 3.49 10^6/uL (3.72-5.28); RED CELL DISTRIBUTION WIDTH 15.4 % (11.5-14.0); SEGMENTED NEUTROPHILS % (AUTO) 81.4 % (42-78); TOTAL CELLS COUNTED % (AUTO) 100 %; WHITE BLOOD COUNT 9.7 10^3/uL (4.0-10.5)
[2020-04-12] MEDS ORDERED: EPHEDRINE SULFATE INJ 50 MG/1 ML AMPULE ONE (06:38)
[2020-04-12] MEDS ORDERED: ROPIVACAINE HCL 0.2% INJ/PF (2 MG/ML) 20 ML SDV ONE (06:39)
[2020-04-12] MEDS ORDERED: FENTANYL/BUPIVACAINE/NS/PF 300 MCG/150 ML RTUINJ EPI ONE (06:39)
[2020-04-12] MEDS ORDERED: RINGERS SOLUTION,LACTATED 1,000 ML IV PRN (06:50)
--- NOTE | 2020-04-12 08:12 | Admission Physical ---
Datetime Report Generated by CPN: 04/12/2020 08:12 CURRENT ADMISSION Hx Assessment: No Care Chief Complaint: Uterine Contractions Chief Complaint Other: at 40.0 wks EGA by patients estimation by LMP. She feels painful uterine contractions which woke her up this am. She was found to be 6 cm and completely dilated on arrival. Admit Impression : Term, Intrauterine ; Active Labor; Admit Plan: Admit to Unit; Initiate Protocol ALLERGIES Medication Allergies: No Medication Allergies: No Known Allergies (04/12/2020) Latex: No Latex Allergies Food Allergies: strawberries, eggs OBSTETRICAL HISTORY EDC: 04/12/2020 00:00 : 6 Para: 4 Term: 4 : 0 SAB: 1 IAB: 0 Ectopic: 0 Cesareans: 1 VBACs: 3 Gestational Diabetes: No Rh Sensitization: No Incompetent Cervix: No NIA: No Infertility: No ART Treatment: No Uterine Anomaly: No IUGR: No Hx Previous C/S: No Macrosomia: No Hx Loss/Stillborn: No PIH: No Hx : No Placenta Previa/Abruption: No Depression/PP Depression: No PTL/PROM: No Post Hemorrhage: No Current Procedures: Ultrasound SEE RECORDS Alcohol: No Marijuana : No Cocaine: No Other Illicit Drugs: No Cigarettes: Never Smoker. 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 Surgery: No Heart Disease: No Hosp/Surgery: No Autoimmune Disorder: No Anesthetic Complications: No Kidney Disease: No Abnormal Pap Smear: No Neuro/Epilepsy: No Psychiatric Disorders: No Other Medical Diseases: No Hepatitis/Liver Disease: No Significant Family History: No Varicosities/Phlebitis: No Trauma/Violence : No Thyroid Dysfunction: No INFECTIOUS HISTORY Gonorrhea: No Genital Herpes: No Chlamydia: No Tuberculosis: No Syphilis: No Hepatitis: No HIV/AIDS Exposure: No Rash or Viral Illness: No HPV: No PHYSICAL EXAM General: Normal HEENT: Normal Neurologic: Normal Thyroid: Normal Heart: Normal Lungs: Normal Breast: Normal Back: Normal Abdomen: Normal Genitourinary Exam: Normal Extremities: Normal DTRs: Normal Pelvic Type: Adequate Vital Signs: Reviewed; Within Normal Limits VAGINAL EXAM Dilatation: 6 Effacement: 100 Station: -1 Contraction Comments: Regular FETUS A EGA: 40.0 Monitoring: External US FHR- Baseline: 145 Variability: Moderate 6-25bpm Accelerations: 15X15 Decelerations: None FHR Category: Category I Presentation: Vertex Admit Comment: 29 yo at 40.0 wks EGA by US estimation this am. No CARE Active labor with regular contractions and dilation to 6/100/-1, History CS with 3 successful VBACs after first CS -admit to LDR -NPO and IVFs: LR at 125 cc/hr after 1 liter LR bolus -CEFM and toco -GBS unknown: PCN for GBS prophylaxis -Desires TOLAC - labs obtained -Anticipate PLANS FOR LABOR AND DELIVERY Labor and Delivery: None Pain Management: Epidural Feeding Preference: Both Circumcision: Yes INFORMED CONSENT Informed Consent Obtained: Section Delivery; Vaginal After ; Risks, Benefits and Alternatives Discussed Signature: with User ID: Mirtha : with User ID: Mirtha
[2020-04-12 09:54] LABS: CHLAM PCR NOT DETECTED (NOT DETECT)
[2020-04-12] MEDS: PENICILLIN G POTASSIUM 2,500,000 UNIT in DEXTROSE 5%-WATER 50 ML IV SCH ×3 (10:23→18:37)
--- NOTE | 2020-04-12 11:04 | L&D Progress Notes ---
PROGRESS NOTES Datetime Report Generated by CPN: 04/12/2020 11:04 PROGRESS NOTE Impression: Reassuring Heart Rate Procedures: Artificial ROM; Sterile Vag Exam Plan: Continue Present Management; Anticipate Vaginal Delivery Informed Consent Obtained: Section Delivery; Vaginal After ; Risks, Benefits and Alternatives Discussed Vital Signs : Reviewed Comment: Comfortable w/ the epidural, VE 9/90/-1. AROM w/ light meconium noted. Position changes encouraged. Anticipate . VAGINAL EXAM Dilatation: 6 Effacement: 100 Station: -1 Contractions: Regular LAST VAGINAL EXAM-NURSING Nursing Exam Dilitation: 9.0 Nursing Exam Effacement: 100 Nursing Exam Station: -1 Nursing Exam Contractions: pt sitting up for epidural unable to determine cx pattern. MEMBRANES Membranes: Ruptured Amniotic Fluid Color: Meconium, Light FETUS A Monitoring: External US FHR Category: Category I : 40.0 Presentation: Vertex SIGNATURE SIGNATURE: [id number] Assignment: Brittany Corona MD Signature: with User ID: Marry : with User ID: Marry
--- NOTE | 2020-04-12 14:37 | L&D Progress Notes ---
PROGRESS NOTES Datetime Report Generated by CPN: 04/12/2020 14:37 PROGRESS NOTE Impression: Reassuring Heart Rate Procedures: Sterile Vag Exam Procedures- Other: IUPC placed Plan: Continue Present Management Plan Other: may need to augment Informed Consent Obtained: Section Delivery; Vaginal After ; Risks, Benefits and Alternatives Discussed Vital Signs : Reviewed Comment: Pt attempting to w/ spontaneous labor. VE /-2 w/ thicker lip, but really no cervical change since the 1044 exam. IUPC placed to better assess contraction pattern. May need to augment w/ Pitocin if contractions are not at least 200 mmHg. VAGINAL EXAM Dilatation: 9 Effacement: 90 Station: -2 Contractions: Regular LAST VAGINAL EXAM-NURSING Nursing Exam Dilitation: 9.0 Nursing Exam Effacement: 100 Nursing Exam Station: -1 Nursing Exam Contractions: RN at bedside adjusting mointor. MEMBRANES Membranes: Ruptured Amniotic Fluid Color: Meconium, Light FETUS A Monitoring: External US FHR Category: Category I : 40.0 Presentation: Vertex SIGNATURE SIGNATURE: [id number];[id number] Assignment: Brittnay Corona MD Signature: with User ID: Marry : with User ID: Marry
[2020-04-12] MEDS ORDERED: MEASLES,MUMPS&RUBELLA VACC/PF 0.5 ML VIAL SUBCUT PRN (16:24)
[2020-04-12] MEDS ORDERED: VARICELLA VACC/PF (1350 UNIT/0.5 ML) 0.5 ML VIAL SUBCUT PRN (16:24)
[2020-04-12] MEDS ORDERED: ACETAMINOPHEN 325 MG TABLET PO PRN (16:24)
[2020-04-12] MEDS ORDERED: DIPHENHYDRAMINE HCL 25 MG CAPSULE PO PRN (16:24)
[2020-04-12] MEDS ORDERED: GLYCERIN/WITCH HAZEL LEAF 1 EACH MED..WIPE TP PRN (16:24)
[2020-04-12] MEDS ORDERED: MAGNESIUM HYDROXIDE SUSP 30 ML UDCUP PO PRN (16:24)
[2020-04-12] MEDS ORDERED: ZOLPIDEM TARTRATE 5 MG TABLET PO PRN (16:24)
[2020-04-12] MEDS ORDERED: DIPH/PERTUSS(ACELL)/TETANUS VAC/PF 0.5 ML SYR (>=10YO) IM PRN (16:24)
[2020-04-12] MEDS ORDERED: MAG HYDROX/AL HYDROX/SIMETH SUSP 30 ML UDCUP PO PRN (16:24)
[2020-04-12] MEDS ORDERED: PSEUDOEPHEDRINE HCL 30 MG TABLET PO PRN (16:24)
[2020-04-12] MEDS ORDERED: OXYTOCIN/0.9 % SODIUM CHLORIDE 30 UNIT/500 ML RTUINJ IV PRN (16:24)
[2020-04-12] MEDS ORDERED: FAMOTIDINE 20 MG TABLET PO PRN (16:24)
[2020-04-12] MEDS ORDERED: BENZOCAINE/MENTHOL AEROSOL SPRAY 56 ML TOP PRN (16:24)
[2020-04-12] MEDS ORDERED: ACETAMINOPHEN 650 MG SUPP.RECT PR PRN (16:24)
[2020-04-12] MEDS ORDERED: ACETAMINOPHEN WITH CODEINE #3 TABLET PO PRN (16:24)
[2020-04-12] MEDS ORDERED: DIBUCAINE 1% OINTMENT 28 GM TP PRN (16:24)
[2020-04-12] MEDS ORDERED: ACETAMINOPHEN 325 MG TABLET ONE (17:18)
[2020-04-12] MEDS ORDERED: CEFAZOLIN 2 GM/D5W RTU 2 GM/50 ML RTUPB IV ONE (17:18)
[2020-04-12] MEDS ORDERED: ACETAMINOPHEN 325 MG TABLET PO ONE (17:20)
[2020-04-12] MEDS: CEFAZOLIN 2 GM/D5W RTU 2 GM/50 ML RTUPB IV SCH (18:37)
[2020-04-12] MEDS: FERROUS SULFATE 325 MG TABLET PO SCH (18:44)
[2020-04-12] MEDS: DOCUSATE SODIUM 100 MG CAPSULE PO SCH (18:44)
--- NOTE | 2020-04-12 19:17 | Birth Certificate Data ---
Cert Data Datetime Report Generated by CPN: 04/12/2020 19:17 CERTIFICATE DATA Delivery Provider: Paulina Granger CNM (04/12/2020 01:29:Suad Briggs RN) 47a. Care: No (04/12/2020 01:29:Mary Kuo RN) 48a. Number of Prev Live Births: 4 (04/12/2020 01:29:Mary Kuo RN) 48d. Date of Last Live : 03/15/2019 00:00 (04/12/2020 01:29:Mary Kuo RN) 48e. Losses: 1 (04/12/2020 01:29:Mary Kuo RN) RISK FACTORS IN THIS 49a. Diabetes: No (04/12/2020 01:29:Mary Kuo RN) 49b. Hypertension: No (04/12/2020 01:29:Mary Kuo RN) 49c. Previous Births: 0 (04/12/2020 01:29:Mary Kuo RN) 49d. Stillborns: No (04/12/2020 01:29:Mary Kuo RN) 49d. IUGR: No (04/12/2020 01:29:Mary Kuo RN) 49e. Infertility Treatment: No (04/12/2020 01:29:Mary Kuo RN) 49f. Previous Cesareans: 1 (04/12/2020 01:29:Mary Kuo RN) Mother's Height 50b. Height Inches: 66 (04/12/2020 06:54:QS system process) Mother's Weight 51b. Weight at Delivery (lbs): 205 (04/12/2020 06:54:QS system process) Infections Present/Treated 53a. Gonorrhea: No (04/12/2020 01:29:Mary Kuo RN) 53b. Syphilis: No (04/12/2020 01:29:Mary Kuo RN) Results this Hospital Visit: NONREACTIVE (04/12/2020 02:01:QS system process) 53c. Chlamydia: No (04/12/2020 01:29:Mary Kuo RN) 53d. Hepatitis B: No (04/12/2020 01:29:Mary Kuo RN) Results this Hospital Visit: Negative (04/12/2020 01:29:Mary Kuo RN) 53j. Test Result: Negative (04/12/2020 01:29:Mary Kuo RN) Obstetric Procedures 54a, b, c. Obstetric Procedures: Ultrasound (04/12/2020 01:29:Mary Kuo RN) Cigarette Smoking Cigarette Smoking: Never Smoker. [id number] (04/12/2020 01:29:[facility], RN) Onset of Labor 56a. PROM >12 Hrs: 5.32 (04/12/2020 01:29:QS system process) 56b. Precipitous Labor <3 Hrs: 13 (04/12/2020 01:29:QS system process) 56c. Prolonged Labor > 20 Hrs: 13 (04/12/2020 01:29:QS system process) 57a. Induction of Labor: Augmentation (04/12/2020 01:29:Suad Briggs RN) 57c. Non-Vertex Presentation A: Vertex (04/12/2020 01:29:Suad Briggs RN) 57d. Steroids - Lung Mat: None (04/12/2020 01:29:Suad Briggs RN) 57d. Steroids - Lung Mat: Not Applicable (04/12/2020 01:29:Suad Briggs RN) 57e. Antibiotics During Labor: 04/12/2020 14:20 (04/12/2020 01:29:Suad Briggs RN) 57g. Moderate/Heavy Meconium: Light Meconium (04/12/2020 10:54:Suad Briggs RN) 57i. Epidural/Spinal Anesthesia: Epidural (04/12/2020 01:29:Suad Briggs RN) Method of Delivery 58a. Forceps - Unsuccessful A: N/A (04/12/2020 01:29:Suad Briggs RN) 58b. Vacuum - Unsuccessful A: N/A (04/12/2020 01:29:Suad Briggs RN) 58c. Presentation at 58c. Presentation at - A : Vertex (04/12/2020 01:29:Suad Briggs RN) 58c. Presentation at - A : N/A (04/12/2020 01:29:Suad Briggs RN) 58c. Presentation at - A : Cephalic (04/12/2020 10:54:Suad Briggs RN) Final Route and Method of Del 58d. Baby A Route/Delivery: Vaginal (04/12/2020 16:13:Suad Briggs RN) 58e. Trial of Labor Attempted: No (04/12/2020 01:29:Suad Briggs RN) 58e. Trial of Labor Attempted A: N/A (04/12/2020 01:29:Suad Briggs RN) 58e. Trial of Labor Attempted B: N/A (04/12/2020 01:29:Suad Briggs RN) Birthweight Baby A: 3596 (04/12/2020 01:29:Kelly Gandara RN) 60a. Pounds : 7 (04/12/2020 01:29:QS system process) 60b. Ounces: 15 (04/12/2020 01:29:QS system process) 61. GA at Delivery Baby A: 40.0 (04/12/2020 01:29:Suad Briggs RN) : Full Term- 39- 40.6 Weeks (04/12/2020 01:29:QS system process) 62a. 5 Minute Baby A: 9 (04/12/2020 01:29:QS system process)
--- NOTE | 2020-04-12 19:17 | Delivery Summary ---
Del Sum A-C Datetime Report Generated by CPN: 04/12/2020 19:16 DELIVERY PERSONNEL DELIVERY PERSONNEL: [id number] Delivery Doctor:: Paulina Granger CNM Labor and Delivery Nurse:: Suad Briggs RNmaitre d' Nurse:: PARISA Wheeler Nursery Nurse:: Corina Ibarra RN Nursery Nurse:: Macey Mccoy RN Silk Spreader/SCRUB NURSE: Elva Mckay, LATEX FASHIONS DESIGNER MATERNAL INFORMATION Delivery Anesthesia: Epidural Medications After Delivery: Pitocin 30 Units in 500ml NS/D5W Delivery QBL: 200 Maternal Complications: Other Complication Details: No Care Provider Comments: of VFI, head and shoulders easily delivered. Baby girl vigorous and crying, placed on pts abdoman. Mouth was bulb suctioned. Cord clamped and cut after one minute. Cord blood collected. PLacenta S/C/I, ff w/ decreased lochia, IV Pitocin infusing. Perineum intact. Apgars 8,9. QBL 200 ml. Mother and baby left in stable condition, she plans to breast and bottlefeed. Attending MD is Dr Corona LABOR SUMMARY EDC: 04/12/2020 00:00 No. Babies in Womb: 1 Attempted: No Labor Anesthesia: Epidural LABOR INFORMATION Reason for Induction: Not Applicable Onset of Labor: 04/12/2020 03:14 Complete Dilatation: 04/12/2020 16:02 Oxytocin: Augmentation Group B Beta Strep: unknown Antibiotics # of Doses: 3 Antibiotics Time of Last Dose: 04/12/2020 14:20 Name of Antibiotic Given: Penicillin Steroids Given: None Reason Steroids Not Administered: Not Applicable MEMBRANES Membranes Rupture Method: Artificial Rupture of Membranes: 04/12/2020 10:54 Length of Rupture (hr): 5.32 Amniotic Fluid Color: Light Meconium Amniotic Fluid Amount: Small Amniotic Fluid Odor: Normal STAGES OF LABOR Stage 1 hr: 12 Stage 1 min: 48 Stage 2 hr: 0 Stage 2 min: 11 Stage 3 hr: 0 Stage 3 min: 3 Total Time in Labor hr: 13 Total Time in Labor min: 2 VAGINAL DELIVERY Laceration Repair: Not Applicable BABY A INFORMATION Delivery Date/Time: 04/12/2020 16:13 Method of Delivery: Vaginal Born in Route : No : N/A Forceps: N/A Vacuum Extraction: N/A Shoulder Dystocia : No PRESENTATION/POSITION BABY A Presentation: Cephalic Cephalic Presentation: Vertex Vertex Position: Left Occipital Anterior Breech Presentation: N/A PLACENTA INFORMATION BABY A Placenta Delivery Time : 04/12/2020 16:16 Placenta Method of Delivery: Spontaneous Placenta Status: Delivered SCORES BABY A Heart Rate 1 min: >100 bpm Resp Effort 1 min: Good Cry Reflex Irritability 1 min: Grimace Muscle Tone 1 min: Active Motion Color 1 min: Body [place], Extremities Blue Resuscitation Effort 1 min: Tactile Stimulation SCORE 1 MIN: 8 Heart Rate 5 min: >100 bpm Resp Effort 5 min: Good Cry Reflex Irritability 5 min: Cough or Sneeze or Pulls Away Muscle Tone 5 min: Active Motion Color 5 min: Body [place], Extremities Blue Resuscitation Effort 5 min: Tactile Stimulation SCORE 5 MIN: 9 INFANT INFORMATION BABY A Gestational Age at Delivery: 40.0 Gestational Status: Full Term- 39- 40.6 Weeks Outcome : Liveborn Infant Condition : Stable Sex: Female IDENTIFICATION BABY A Infant Verification Date/Time: 04/12/2020 17:09 ID Band Number: [id number] Mother's Name Verified: Yes RN Verifying : Rboert Briggs RN Additional Verifying Personnel: Joaquín Gandara RN WEIGHT/LENGTH BABY A Infant Birthweight (gm): 3596 Weight (lb): 7 Weight (oz): 15 Length (in): 21.00 Length (cm): 53.34 CORD INFORMATION BABY A No. Cord Vessels: 3 Nuchal Cord : N/A Cord Blood Taken: Yes-For Storage (Mom's Blood type +) (Annotations: Data stored by [facility] on behalf of user) Infant Suction: Mouth; Nose ASSESSMENT BABY A Skin to Skin: No BABY B INFORMATION : N/A SIGNATURES Assignment: Brittany Corona MD Signature: with User ID: Marry : with User ID: Marry
[2020-04-12] MEDS: IBUPROFEN 800 MG TABLET PO SCH ×2 (19:58→22:49)
[2020-04-13] MEDS: CEFAZOLIN 2 GM/D5W RTU 2 GM/50 ML RTUPB IV SCH ×4 (01:06→18:41)
[2020-04-13] MEDS: IBUPROFEN 800 MG TABLET PO SCH ×3 (06:26→22:15)
[2020-04-13] MEDS ORDERED: INFLUENZA QUAD (6MOS+) 2020-21 VAC 0.5 ML SYR IM ONE (08:00)
[2020-04-13 08:37] LABS: HEMATOCRIT 24.3 % (36.0-47.0); MEAN CORPUSCULAR HEMOGLOBIN 25.5 pg (27.0-33.4); MEAN CORPUSCULAR HGB CONC 32.9 g/dL (32.0-36.0); MEAN CORPUSCULAR VOLUME 78 fl (80-97); PLATELET COUNT 239 10^3/uL (150-450); RED BLOOD COUNT 3.14 10^6/uL (3.72-5.28); RED CELL DISTRIBUTION WIDTH 15.2 % (11.5-14.0); WHITE BLOOD COUNT 9.1 10^3/uL (4.0-10.5)
[2020-04-13 09:35] LABS: HEPATITIS B SURFACE AB QUAL Reactive (.)
[2020-04-13] MEDS: PRENATAL VITAMIN W DHA CAPSULE PO SCH (10:08)
[2020-04-13] MEDS: FERROUS SULFATE 325 MG TABLET PO SCH ×2 (10:08→18:40)
[2020-04-13] MEDS: SENNOSIDES/DOCUSATE 8.6-50 MG 1 EACH TABLET PO SCH (10:08)
[2020-04-13] MEDS: DOCUSATE SODIUM 100 MG CAPSULE PO SCH ×2 (10:08→18:40)
--- NOTE | 2020-04-13 10:21 | PDOC PROGRESS REPORT ---
Subjective Date:: 04/13/20 Subjective:: She reports that she is doing well today. Reason For Visit: EVALUATION OF LABOR AND PRESENTING OBSTETRIC Physical Exam - Physical Exam Vital Signs: Temp Pulse Resp BP Pulse Ox 97.5 F 74 18 131/61 H 100 04/13/20 09:06 04/13/20 07:33 04/13/20 07:33 04/13/20 07:33 04/13/20 07:33 Intake & Output 04/12/20 04/13/20 04/14/20 06:59 06:59 06:59 Intake Total 50 2049 Output Total 400 Balance -350 2049 Weight 92.986 kg General appearance: PRESENT: no acute distress, well-developed, well-nourished Head exam: PRESENT: atraumatic, normocephalic Cardiovascular exam: PRESENT: RRR. ABSENT: diastolic murmur, rubs, systolic murmur Pulses: PRESENT: normal dorsalis pedis pul, +2 pedal pulses bilateral Vascular exam: PRESENT: normal capillary refill Result Laboratory Results: 04/13/20 08:02 04/13/20 08:02 WBC 9.1 RBC 3.14 L Hgb 8.0 L Hct 24.3 L MCV 78 L MCH 25.5 L MCHC 32.9 RDW 15.2 H Plt Count 239 Impressions: Obstetrics Ultrasound 04/12/20 00:00 IMPRESSION: Single live intrauterine gestation as described. Anemia post from blood loss. Assessment & Plan - Diagnosis (1) Anemia Qualifiers: Other causes of anemia: acute posthemorrhagic Is this a current diagnosis for this admission?: No (2) Anemia, Is this a current diagnosis for this admission?: Yes (3) (normal spontaneous vaginal delivery) Is this a current diagnosis for this admission?: Yes - Time Time Spent with patient: 15-24 minutes Anticipated discharge: Home Anticipated DC Timeframe: within 24 hours
[2020-04-14] MEDS: IBUPROFEN 800 MG TABLET PO SCH ×2 (05:40→13:50)
[2020-04-14 08:28] VITALS: BP 133/66
[2020-04-14 10:08] LABS: HEPATITIS C VIRUS RNA QUAL NAA Negative (Negative)
[2020-04-14] MEDS: DOCUSATE SODIUM 100 MG CAPSULE PO SCH (10:15)
[2020-04-14] MEDS: FERROUS SULFATE 325 MG TABLET PO SCH (10:15)
[2020-04-14] MEDS: PRENATAL VITAMIN W DHA CAPSULE PO SCH (10:15)
[2020-04-14] MEDS: SENNOSIDES/DOCUSATE 8.6-50 MG 1 EACH TABLET PO SCH (10:15)
[2020-04-14] MEDS ORDERED: MEDROXYPROGESTERONE ACET INJ 150 MG/1 ML VIAL IM ONE (11:30)
--- NOTE | 2020-04-14 11:33 | PDOC DISCHARGE SUMMARY ---
Impression - Admit/DC Date/PCP Admission Date/Primary Care Provider: 04/12/20 05:15 EDGARDO JONES MD Discharge Date: 04/14/20 - Discharge Diagnosis (1) , delivered Is this a current diagnosis for this admission?: Yes (2) Anemia Is this a current diagnosis for this admission?: Yes - Additional Information Discharge Diet: Regular Discharge Activity: Balance Activity w/Rest, Pelvic Rest Referrals: EDGARDO JONES MD [Primary Care Provider] - Prescriptions: Docusate Sodium [Colace 100 mg Capsule] 100 mg PO BID #60 capsule Ferrous Sulfate [Feosol 325 mg Tablet] 325 mg PO BID #60 tablet Ibuprofen [Motrin 800 mg Tablet] 800 mg PO Q8HP PRN #60 tablet PRN Reason: Vit/Dha [ Multi + Dha Capsule] 1 cap PO DAILY #90 capsule Acetaminophen with Codeine [Tylenol #3 Tablet] 1 each PO Q4HP PRN #14 tablet PRN Reason: Home Medications: Acetaminophen with Codeine [Tylenol #3 Tablet] 1 each PO Q4HP PRN #14 tablet 04/14/20 Docusate Sodium [Colace 100 mg Capsule] 100 mg PO BID #60 capsule 04/14/20 Ferrous Sulfate [Feosol 325 mg Tablet] 325 mg PO BID #60 tablet 04/14/20 Ibuprofen [Motrin 800 mg Tablet] 800 mg PO Q8HP PRN #60 tablet 04/14/20 Vit/Dha [ Multi + Dha Capsule] 1 cap PO DAILY #90 capsule 04/14/20 Hospital Course 59. Maternal Morbidity (serious complications experinced by the mother associated with labor and delivery: None of the above Results Laboratory Results: WBC 9.1 10^3/uL (4.0-10.5) 04/13/20 08:02 RBC 3.14 10^6/uL (3.72-5.28) L 04/13/20 08:02 Hgb 8.0 g/dL (12.0-15.5) L 04/13/20 08:02 Hct 24.3 % (36.0-47.0) L 04/13/20 08:02 MCV 78 fl (80-97) L 04/13/20 08:02 MCH 25.5 pg (27.0-33.4) L 04/13/20 08:02 MCHC 32.9 g/dL (32.0-36.0) 04/13/20 08:02 RDW 15.2 % (11.5-14.0) H 04/13/20 08:02 Plt Count 239 10^3/uL (150-450) 04/13/20 08:02 Lymph % (Auto) 13.4 % (13-45) 04/12/20 06:07 Lander % (Auto) 4.7 % (3-13) 04/12/20 06:07 Eos % (Auto) 0.1 % (0-6) 04/12/20 06:07 Baso % (Auto) 0.4 % (0-2) 04/12/20 06:07 Absolute Neuts (auto) 7.9 10^3/uL (1.7-8.2) 04/12/20 06:07 Absolute Lymphs (auto) 1.3 10^3/uL (0.5-4.7) 04/12/20 06:07 Absolute Monos (auto) 0.5 10^3/uL (0.1-1.4) 04/12/20 06:07 Absolute Eos (auto) 0.0 10^3/uL (0.0-0.6) 04/12/20 06:07 Absolute Basos (auto) 0.0 10^3/uL (0.0-0.2) 04/12/20 06:07 Seg Neutrophils % 81.4 % (42-78) H 04/12/20 06:07 Urine Color YELLOW 04/12/20 01:24 Urine Appearance SLIGHTLY-CLOUDY 04/12/20 01:24 Urine pH 6.0 (5.0-9.0) 04/12/20 01:24 Ur Specific [place] 1.015 04/12/20 01:24 Urine Protein 30 mg/dL (NEGATIVE) H 04/12/20 01:24 Urine Glucose (UA) NEGATIVE mg/dL (NEGATIVE) 04/12/20 01:24 Urine Ketones 300 mg/dL (NEGATIVE) H 04/12/20 01:24 Urine Blood NEGATIVE (NEGATIVE) 04/12/20 01:24 Urine Nitrite NEGATIVE (NEGATIVE) 04/12/20 01:24 Urine Bilirubin NEGATIVE (NEGATIVE) 04/12/20 01:24 Urine Urobilinogen 4.0 mg/dL (<2.0) H 04/12/20 01:24 Ur Leukocyte Esterase LARGE (NEGATIVE) H 04/12/20 01:24 Urine RBC (Auto) 3 /HPF 04/12/20 01:24 Urine Bacteria (Auto) TRACE /HPF 04/12/20 01:24 Urine WBC Clumps 20-30 /HPF 04/12/20 01:24 Squamous Epi Cells Auto MODERATE /HPF 04/12/20 01:24 Urine Ascorbic Acid NEGATIVE (NEGATIVE) 04/12/20 01:24 Membranes Rupture NEGATIVE (NEGATIVE) 04/12/20 01:35 Urine Opiates Screen NEGATIVE 04/12/20 01:24 Urine Methadone Screen NEGATIVE 04/12/20 01:24 Ur Barbiturates Screen NEGATIVE 04/12/20 01:24 Ur Phencyclidine Scrn NEGATIVE 04/12/20 01:24 Ur Amphetamines Screen NEGATIVE 04/12/20 01:24 U Benzodiazepines Scrn NEGATIVE 04/12/20 01:24 Urine Cocaine Screen NEGATIVE 04/12/20 01:24 U Marijuana (THC) Screen NEGATIVE 04/12/20 01:24 RPR NONREACTIVE (NONREACTIVE) 04/12/20 02:01 Chlamydia DNA (PCR) NOT DETECTED (NOT DETECT) 04/12/20 08:10 Hep Bs Antibody Reactive (.) 04/12/20 02:01 HCV RNA Qual (SERGE) Negative (Negative) 04/12/20 02:01 HIV 1&2 Antibody NEGATIVE (NEGATIVE) 04/12/20 02:01 N.gonorrhoeae DNA (PCR) NOT DETECTED (NOT DETECT) 04/12/20 08:10 Rubella IgG Antibody 12.30 IU/mL 04/12/20 02:01 Rubella IgG Ab Interp POSITIVE 04/12/20 02:01 Blood Type A POSITIVE 04/12/20 02:01 Antibody Screen NEGATIVE 04/12/20 02:01 Impressions: Obstetrics Ultrasound 04/12/20 00:00 IMPRESSION: Single live intrauterine gestation as described. Plan Plan of Treatment: follow up in 4 weeks at [facility] for post check
[2020-04-15 13:18] LABS: HEPATITS B SURFACE ANTIGEN Negative (Negative)
== END 2020-04-14 14:14 | disposition home or self-care (01) | DRG 998 ==
LOC: LC 01:15 → LR 05:15 → 2S 18:35
PROVIDERS: ADMIT Obstetrics & Gynecology Gynecology; ATTEND Obstetrics & Gynecology
PROC: 10H073Z Insertion of Monitoring Electrode into Products of Conception, Via Natural or Artificial Opening (ICD-10-PCS; principal; 2020-04-12)
PROC: 3E02340 Introduction of Influenza Vaccine into Muscle, Percutaneous Approach (ICD-10-PCS; 2020-04-14)
DX: O77.0 Labor and delivery complicated by meconium in amniotic fluid (principal); O34.219 Maternal care for unspecified type scar from previous cesarean delivery; O99.02 Anemia complicating childbirth; D64.9 Anemia, unspecified; Z37.0 Single live birth; Z3A.40 40 weeks gestation of pregnancy; Z23 Encounter for immunization
CPT/HCPCS: 1967; 36415; 76805; 80307; 81001; 84112; 85025; 85027; 86592; 86701; 86706; 86762; 86850; 86900; 86901; 87081; 87340; 87491; 87521; 87591; 90471; 90686; 94760; G0008; J0690; J1050; J2540; J2590; J2795; J3010; J3490; J7060